=== PATIENT | male | born 1985 | race African-American/Black ===

== ENCOUNTER 2019-10-14 15:08 | Emergency (ER) | payer OTHER ==
[2019-10-15 16:10] LABS: SARS-CoV-2 MS2 Positive; SARS-CoV-2 N Gene Negative; SARS-CoV-2 S Gene Negative; SARS-CoV-2 orf1ab Negative
== END 2019-10-14 15:47 | disposition home or self-care (01) ==
LOC: ERS 15:08
DX: Z20.828 Contact with and (suspected) exposure to other viral communicable diseases (principal); F17.210 Nicotine dependence, cigarettes, uncomplicated
CPT/HCPCS: 87635; 99283; U0003

== ENCOUNTER 2024-02-13 19:01 | Emergency (ER) | payer OTHER ==
[2024-02-13] MEDS ORDERED: Acetaminophen 500 MG TAB ONE (19:46)
== END 2024-02-13 21:17 | disposition home or self-care (01) ==
LOC: ERS 19:01
DX: S13.4XXA Sprain of ligaments of cervical spine, initial encounter (principal); F17.290 Nicotine dependence, other tobacco product, uncomplicated; V48.5XXA Car driver injured in noncollision transport accident in traffic accident, initial encounter; Y93.89 Activity, other specified; Y92.410 Unspecified street and highway as the place of occurrence of the external cause
CPT/HCPCS: 70450; 72125